=== PATIENT | female | born 1945 | race Caucasian/White ===

== ENCOUNTER 2016-09-12 11:00 | Day surgery (SDC) | payer MEDICARE, OTHER ==
[~2016-09-12] VITALS: Ht 161.3 cm; Wt 66.6 kg
[2016-09-12] VITALS (7 sets, daily range): BP systolic 130–151; BP diastolic 6–62; PULSE 60–80; RESP 13–17; O2SAT 96–100
[~2016-09-12 11:00] MED LIST: ASPI-973 PO; CIPR-231 PO; CeFAZolin 2 Gm/50 mL D5W IV Premix IV ONE; FEXO-106 PO; LISI-567 PO; PRAV40TA PO
[2016-09-12] MEDS ORDERED: Ondansetron 2 mg/mL 2 mL Inj ONE (11:01)
[2016-09-12] MEDS ORDERED: HYDROmorphone 2 mg/mL Inj ONE (11:01)
[2016-09-12] MEDS ORDERED: MetoCLOpramide 5 mg/mL 2 mL Inj ONE (11:01)
[2016-09-12] MEDS ORDERED: fentaNYL-PF 50 mCg/mL 2 mL Inj ONE (11:01)
[2016-09-12] MEDS ORDERED: Succinylcholine Chloride 20 mg/mL 5 mL Inj ONE (11:01)
[2016-09-12] MEDS ORDERED: Propofol 10,000 mCg/mL 20 mL Inj ONE (11:01)
[2016-09-12] MEDS ORDERED: Dexamethasone 4 mg/mL Inj ONE (11:01)
[2016-09-12] MEDS ORDERED: EPHEDrine/NS 5 mg/mL 5 mL Syringe ONE (11:01)
[2016-09-12] MEDS ORDERED: Lidocaine PF 1% 30 mL Inj ONE (11:01)
[2016-09-12] MEDS ORDERED: Phenylephrine/NS 100 mCg/mL 10 mL Syringe IVPUSH ONE (11:01)
[2016-09-12] MEDS ORDERED: Phenylephrine 10,000 mCg/mL Inj ONE (11:01)
[2016-09-12] MEDS: Lactated Ringer's 1,000 ML IV SCH ×2 (11:15→13:32)
[2016-09-12] MEDS ORDERED: CeFAZolin Inj 2 gm / 50mL D5W IV ONE (11:16)
[2016-09-12 11:48] LABS: Mean Corpuscular Volume 93.6 fL (81-100)
--- NOTE | 2016-09-12 13:04 | PCM.HPANE ---
Patient Data Date of Service: Sep 12, 2016 Surgeon Admitting Provider: Attending Provider:Horacio Box DO Primary Care Physician:Cedrick Grider MD Other Provider:Fco Machado Anesthesia Reason for Visit Left Shoulder Arthritis Ht/WT & BMI Height (Feet): 5 Height (Inches): 3.50 Weight (Kilograms): 66.6 Body Mass Index 25.00 Allergies Coded Allergies: NSAIDS (Non-Steroidal Anti-Inflamma (Verified Adverse Reaction, Severe, DYSPEPSIA, 09/07/16) erythromycin base (Verified Adverse Reaction, Severe, DIARRHEA, 09/07/16) Past Anesthesia History Anesthesia History: Denies:: Anesthesia Reactions, Malignant Hyperthermia Diabetes History Hx Diabetes?: No MRSA MRSA: No Medications Blood Thinner: Aspirin Hypertension Medication: Yes (LISINOPRIL) Home Meds Incl Beta Sachin: No Reported Medications Pravastatin 40 Mg [id number] Mg PO DAILY Ref 0 09/07/16 Lisinopril 20 Mg Oocsdb54 Mg PO DAILY 30 Days Ref 0 09/07/16 Fexofenadine 180 Mg [id number] Mg PO DAILY 09/07/16 Ciprofloxacin (Cipro)500 Mg Pigrgg446 Mg PO BID Ref 0 09/07/16 Aspirin 81 Mg Wtzwxv98 Mg PO DAILY Ref 0 09/07/16 History History of ENT Problems?: Yes HEENT History: Positive for:: Sinus Problem (MILD RHINITIS) Other HEENT Pertinent History: S/P T&A Hx of Heart Problems?: Yes Cardiovascular History: Positive for:: Hypertension (HYPERLIPIDEMIA) Denies:: Heart Murmur Hx of Respiratory Problem?: No Respiratory History: Denies:: Use of C-PAP Machine Hx Neurologic Problems?: Yes Neurological History: Denies:: Parkinson's Disease (ESSENTIAL TREMOR) Hx of GI Problems?: No Hx of Problems?: Yes Genitourinary History: Positive for:: Urinary Tract Infection (RECURRENT E. COLI INFECTIONS-PT IS SELF DIRECTING ABX) Female Hx: Denies:: Currently Skin History: Denies:: History Skin Disorders? Pressure Ulcers Hx Musculoskeletal Problems?: Yes Musculoskeletal History: Positive for:: Degenerative Joint Musculoskeletal Trauma (S/P LT SHOULDER RESURFACING (HEMIARTHROPLASTY?)) Osteoarthritis (LT SHOULDER=CURRENT PROBLEM) Hx of Psycho/Social Problems?: No Hx Surgeries?: Yes (HYST,LT SHOULDER RESURFACING,T&A) Hx Any Other Health Problems?: Yes Other History: Positive for:: Cancer (CLL) Denies:: Endocrine Disease Hospitalization Thyroid Disease Hx Diabetes: No Hx Alcohol Use: YesAlcoholic Drinks Per Day: 2/WEEKHave You Smoked inLast 12 mo: No Stop/Bang Treated for Sleep Apnea?: No Do You Have a CPAP Machine?: No S-Snoring: Do You Snore Loudly: No T-Tired: feel tired, fatigued: No O-Obsered: Observed not breath: No P-Blood Pressure: treated: Yes B- Body Mass Index > 35 kg/m2: No A- Age over 50: Yes N- Neck Large Circumference: No G- Gender Male: No OSCAR Total Score: 2 OSCAR Risk Assessment: Low Risk, <3 Yes Risk Assessment Category Category 1A: Patient has history of documented sleep apnea, and HAS NOT received any narcotic, sedative or anesthesia administration during this stay. Category 1B: Patient has history of documented sleep apnea, and HAS received any narcotic , sedative or anesthesia administration during this stay Category 2: Patient has SUSPECTED Obstructive Sleep Apnea, and HAS received any narcotic , sedative or anesthesia administration during this stay. Category 3: Patient has SUSPECTED Obstructive Sleep Apnea and HAS NOT received narcotic, sedative or anesthesia administration during this stay. Category 4: Outpatient in Procedural Areas with known sleep apnea or who screen positive for High Risk via the STOP/BANG questionnaire. Exam Exam Vital Signs Vital Signs Date Time Temp Pulse Resp B/P Pulse Ox O2 Delivery O2 Flow Rate FiO2 09/12/16 11:29 35.8 60 16 144/55 100 Room Air General Appearance: Alert, Oriented X3, Cooperative HEENT/AIRWAY: MP 2, Neck Movement (OK), Mouth Opening (Wide) Lungs: Clear to Auscultation, Normal Air Movement Heart: Regular Rate/Rhythm, Normal S1, Normal S2 Meds/Labs/Diagnostics Admission Meds Current Medications Lactated Ringer's (Lr) 1,000 ml @ 120 mls/hr Q8H20M IV Last administered on t 11:15; Start 09/12/16 at 05:00; Stop 09/12/16 at 13:19 Labs Test 09/12/16 11:45 White Blood Count - Pt with CLL 29.7th/mm3 (3.8-10.1) Red Blood Count 4.04mil/mm3 (3.90-5.20) Hemoglobin 12.1g/dL (12.0-15.6) Hematocrit 37.8% (35.0-46.0) Mean Corpuscular Volume 93.6fL (81-100) Mean Corpuscular Hemoglobin 30.0pg (27.0-35.0) Mean Corpuscular Hemoglobin Concent 32.0% (32.0-37.0) Red Cell Distribution Width 14.7% (12.3-15.4) Platelet Count 158bil/L (150-400) Plan Impression Patient chart reviewed, patient interviewed and anesthestic plan with risks, benefits, and alternatives discussed, and informed consent obtained. NPO Status: 09/11 at 1900 ASA Physical Status: ASA2 Mod Systemic Disease (CLL, hypertension) Anesthetic Plan: GA, Regional Block Bene/Risks/Altern/Consents: Yes HP Complete Prior to Induction: Yes Mike Chery MD Sep 12, 2016 13:04
[2016-09-12] MEDS ORDERED: Ropivacaine-PF 0.5% 30 mL Inj INFILTRATE ONE (14:04)
[2016-09-12] MEDS ORDERED: HYDROcodone-APAP 7.5-325 mg Tablet PO PRN (14:20)
[2016-09-12] MEDS ORDERED: Lactated Ringer's 500 ML IV PRN (14:25)
[2016-09-12] MEDS ORDERED: EPHEDrine Sulfate 50 mg/mL Inj IVPUSH PRN (14:25)
[2016-09-12] MEDS ORDERED: Lactated Ringer's 1,000 ML IV SCH (14:25)
[2016-09-12] MEDS ORDERED: Dexamethasone 4 mg/mL Inj IVPUSH PRN (14:25)
[2016-09-12] MEDS ORDERED: Atropine 0.4 mg/mL Inj IVPUSH PRN (14:25)
[2016-09-12] MEDS ORDERED: Labetalol 5 mg/mL 4 mL Inj IV PRN (14:25)
[2016-09-12] MEDS ORDERED: hydrALAZINE 20 mg/mL Inj IVPUSH PRN (14:25)
[2016-09-12] MEDS ORDERED: Phenylephrine 10,000 mCg/mL Inj IVPUSH PRN (14:25)
[2016-09-12] MEDS ORDERED: Ondansetron 2 mg/mL 2 mL Inj IVPUSH PRN (14:25)
[2016-09-12] MEDS ORDERED: HYDROmorphone 1 mg/mL Inj IVPUSH PRN (14:25)
[2016-09-12] MEDS ORDERED: MetoCLOpramide 5 mg/mL 2 mL Inj IVPUSH PRN (14:25)
[2016-09-12] MEDS ORDERED: fentaNYL-PF 50 mCg/mL 2 mL Inj IVPUSH PRN (14:25)
--- NOTE | 2016-09-12 14:42 | OP ---
[address] [address] OPERATIVE REPORT PATIENT: STEPHIE ADAM : 1945 MR#: [id number] ADMIT: 09/12/2016 JOB ID: [id number] DATE OF SURGERY: 09/12/2016 PREOPERATIVE DIAGNOSIS(ES): Left shoulder acromioclavicular joint arthritis. POSTOPERATIVE DIAGNOSIS(ES): Left shoulder acromioclavicular joint arthritis. PROCEDURE: Left shoulder distal clavicle resection, open. SURGEON: Horacio Box DO. ANESTHESIA: General. GRAPHICS EDIT TECHNICIAN: Annamarie Zamudio PA-C. INDICATIONS: The patient is a 71-year-old female, who underwent a left shoulder resurfacing several years ago with myself and has done well with this. However, she developed arthritis at the end of the clavicle which was symptomatic and causing her significant discomfort. She responded well to cortisone injection. However, the effect was short lived, and she wished to proceed with an open distal clavicle resection. We discussed the risks, benefits and possible complications of surgery. All questions were answered. She wished to proceed. A surgical lead was required in order to aid with retraction during this procedure. PROCEDURE IN DETAIL: The patient was brought to the operating room. She was given a preoperative antibiotic and general anesthetic. Placed into the partial beach chair position. The left shoulder was sterilely prepped and draped. An incision was made over the acromioclavicular joint with a saber-type incision. Dissection was carefully carried through the subcutaneous tissue. The AC joint itself was identified and then the incision was carried through the superior capsule over the AC joint. The capsule and periosteum were then dissected carefully back along the clavicle, and about 8 mm of distal clavicle was resected leaving a 1 cm gap. The edges of the bone were then rasped to smooth them. The wound was irrigated and then closed with 0 Vicryl to repair the superior capsule. The subcu was closed with 2-0, and the skin was closed with interrupted 4-0 nylon. Naropin was added as an adjunct local anesthetic. Sterile dressings were applied. Patient tolerated the procedure well. Blood loss was 25 cc. POSTOPERATIVE PROTOCOL: Have the patient use an arm sling for two weeks and apply ice to the shoulder. She may begin doing some pendulum exercises, etc. but I would like her to avoid any significant overhead activity or adduction for 2-4 weeks postoperatively depending on her symptoms. I would like her to follow up in the clinic in two weeks for a recheck and suture removal, and use the arm sling for four weeks postoperatively. Also, at the two week check, I would like her to start removing her arm from the sling to work gently on range of motion exercises twice daily.
--- NOTE | 2016-09-12 15:39 | PCM.ANEP1 ---
Post Anesthesia Phase 1 PACU Phase 1 Assessment Date of Service: Sep 12, 2016 Vital Signs Vital Signs Date Time Temp Pulse Resp B/P Pulse Ox O2 Delivery O2 Flow Rate FiO2 09/12/16 11:29 35.8 60 16 144/55 100 Room Air Anesthetic Administered: GA, Regional Block Level of Alertness: Awake, talking CALERO's with Equal Strength: Yes Pain: No Nausea or Vomiting: No Oxygen Delivery: Simple Mask Lungs: Normal Air Movement Summary Block aborted after 10 ml injected due to poor visualization of brachial plexus with significant vascularity. Patient appears to have satisfactory block with this low volume injected Mike Chery MD Sep 12, 2016 15:39
--- NOTE | 2016-09-12 15:42 | PCM.ANEP2 ---
Post Anesthesia Evaluation ASA/CMS Post Anesthesia Date of Service: Sep 12, 2016 VS in Patient's Normal Range?: Yes Resp Stable; Airway Patent?: Yes CV Function & Hydration Stable: Yes Mental Status Recovered?: Yes Pain control Satisfactory?: Yes N/V Control Satisfactory?: Yes Mike Chery MD Sep 12, 2016 15:42
== END 2016-09-12 23:59 | disposition home or self-care (01) ==
LOC: SAS 11:00
PROVIDERS: ATTEND Orthopaedic Surgery
DX: M19.012 Primary osteoarthritis, left shoulder (principal); I10 Essential (primary) hypertension; Z79.82 Long term (current) use of aspirin; Z79.899 Other long term (current) drug therapy
CPT/HCPCS: 23120; 36415; 76942; 85027; J0330; J0690; J1100; J1170; J2250; J2370; J2405; J2765; J2795; J3010; J7120

== ENCOUNTER 2017-01-31 19:40 | Emergency (ER) | payer MEDICARE, OTHER ==
[~2017-01-31] VITALS: Ht 160 cm; Wt 69.0 kg
[~2017-01-31 19:40] MED LIST changes: -CeFAZolin 2 Gm/50 mL D5W IV Premix IV ONE
[2017-01-31 20:02] VITALS: BP 131/71; PULSE 71; RESP 16; O2SAT 100
--- NOTE | 2017-01-31 20:41 | ED.REPORT ---
HPI-Eye Problem Date of Service Jan 31, 2017 ED Provider: Darvin Vasquez MD Patient is a 71 year old female with a history of hypertension and CLL who presents to the ED complaining of a vision change in her right eye onset 1500. She denies eye pain, eye discharge, headache, floaters or flashes. The patient states that it feels like she is "looking through turner mesh and the edges are connected". Patient also states that her eye feels dry. She reports that it started in her peripheral vision and has now moved more centrally. Patient states that her visual acuity is at baseline and has never experienced this before. According to , the patient's visual acuity was 20/40 on the left and 20/30 on the right. Patient normally wears glasses. Nursing Notes Stated Complaint: VISION CHANGES Chief Complaint: Eye Nursing Notes Reviewed: Yes Allergies: Coded Allergies: NSAIDS (Non-Steroidal Anti-Inflamma (Verified Adverse Reaction, Severe, DYSPEPSIA, 09/07/16) erythromycin base (Verified Adverse Reaction, Severe, DIARRHEA, 09/07/16) Scheduled Aspirin (Aspirin) 81 Mg Tablet 81 MG PO DAILY Ciprofloxacin (Cipro) 500 Mg Tablet 500 MG PO BID Fexofenadine (Fexofenadine) 180 Mg Tablet 180 MG PO DAILY Lisinopril (Lisinopril) 20 Mg Tablet 20 MG PO DAILY Pravastatin (Pravastatin) 40 Mg Tablet 40 MG PO DAILY General Time Seen by MD: 20:40 Chief Complaint Right eye affected Hx Obtained From: Patient Arrived By: Walk-in Sudden in Onset?: Yes Onset Occurred: 5 - 8 hours ago Symptom Duration: Since onset Location: : Eye right Severity: Current: No pain currently Pertinent Negative: Pt denies other symptoms Recent Healthcare: No recent hospitalization Similar Sx Previous: No Past Medical History Past Medical History CLL Reports: Hypertension Smoking History Never Smoker Social History Other Social History: Poor social support Ambulatory Status Independent Review of Systems Review of Systems Note: +vision change Eyes: Denies: Diplopia, Discharge bilateral, Eye pain bilateral, Redness bilateral, Visual loss bilateral Skin: Denies Itching, Denies Rash Neurologic: Denies: Headache Complete sys rev & neg: except as marked. Respiratory: Denies: Non-productive cough, Shortness of breath Physical Exam Initial Vital Signs Vital Signs (First) Date Time Temp Pulse Resp B/P Pulse Ox O2 Delivery O2 Flow Rate FiO2 01/31/17 20:02 36.2 71 16 131/71 100 Room Air Initial VS: Reviewed Head / Eyes: Atraumatic, Normocephalic, PERRL, EOMI, No photophobia, Conjunctiva NL, Eyelids NL, Fundi NL (on limited, non-dialated exam, R disc normal), Temporal arteries NL no temporal tenderness normal vision field no evidence of hemorrhage or hyphema General/Constitutional: Awake, Alert, No acute distress Skin: Atraumatic, Color NL, No rash, Warm, Dry Neurologic: Oriented X3, Speech NL, No motor deficits, No sensory deficits Neck: Atraumatic, Supple Psychiatric: Affect NL, Mood NL Re-Eval/Medical Decision Med Decision/Clinical Course basline visual acutiy, not amarosis, not temporal arteritis, central retinal vein occlusion or retial artery occlusion. to Optho office tonight for exam Re-Evaluation/Progress : Time of Eval: 21:10 Re-Evaluation/Progress Note: Discussed plan for airport manager follow up and discharge. Patient understands and agrees to plan. All questions were addressed. Consultation : Consulted With: Negative Turner Call Returned at: 21:07 Motor Equipment Lieutenant: Will see in office, Agrees with eval, Agrees with plan Note: Consult with Samantha who recommends the patient follow up outpatient. Counseled Regarding: Diagnosis, Need for follow-up, When/why to return to ED Discharge & Departure Primary Impression: Change in vision Disposition: Home Discharge Condition All VS Reviewed: Yes Condition: Stable Additional Instructions: Your visit today in the emergency department included an interview and examination. Follow up with Samantha tsang for further evaluation. Return to the emergency department if you develop any new or concerning symptoms. Referrals: Cedrick Grider MD (PCP) Scribe Attestation Portions of this note were transcribed by Estrella Raygoza. I, Dr. Vasquez personally performed the history, physical exam and medical decision-making; I reviewed and confirmed the accuracy of the information in the transcribed note. Signed by: Eder Chavez, 01/31/17 copies to: Cedrick Grider MD, Donald L MD Jan 31, 2017 20:41 Asia Raygoza Jan 31, 2017 20:50
[2017-01-31 21:21] VITALS: BP 131/71; PULSE 71; RESP 16; O2SAT 100
== END 2017-01-31 21:23 | disposition home or self-care (01) ==
LOC: SED 19:40
DX: H53.9 Unspecified visual disturbance (principal); I10 Essential (primary) hypertension; Z79.82 Long term (current) use of aspirin; Z88.1 Allergy status to other antibiotic agents; Z88.8 Allergy status to other drugs, medicaments and biological substances